=== PATIENT | female | born 1985 | race Caucasian/White ===

== ENCOUNTER 2018-07-06 06:27 | Day surgery (SDC) | payer OTHER ==
[2018-07-06] MEDS ORDERED: SUCCINYLCHOLINE CHLORIDE 100 MG/5 ML SYG IV (07:00)
[2018-07-06] MEDS ORDERED: LIDOCAINE 2% (SDV) 5 ML INJ (07:00)
[2018-07-06] MEDS ORDERED: CEFAZOLIN 2 GM/50 ML (PMX) 50 ML IVPB (10:00)
[2018-07-06] MEDS: SOD CHLORIDE 0.9% 1,000 ML IV (10:00)
[2018-07-06] MEDS ORDERED: DIPHENHYDRAMINE 50 MG INJ IV (12:30)
[2018-07-06] MEDS ORDERED: HYDROmorphONE 1 MG/5 ML IV SYRINGE IV ×3 (12:30)
[2018-07-06] MEDS ORDERED: MEPERIDINE 25 MG INJ IV (12:30)
[2018-07-06] MEDS ORDERED: ONDANSETRON 4 MG INJ IV (12:30)
[2018-07-06] MEDS ORDERED: METOCLOPRAMIDE 10 MG INJ IV (12:30)
[2018-07-06] MEDS ORDERED: FENTAnyl 50 MCG/ML VIAL IV ×2 (12:30)
[2018-07-06] MEDS ORDERED: FENTAnyl 50 MCG/ML VIAL (12:36)
[2018-07-06] MEDS ORDERED: CEFAZOLIN 1 GM INJ (12:49)
[2018-07-06] MEDS ORDERED: SUGAMMADEX SODIUM 200 MG/2 ML VIAL IV (12:49)
[2018-07-06] MEDS ORDERED: PROPOFOL 20 ML (12:49)
[2018-07-06] MEDS ORDERED: ROCURONIUM 50 MG INJ (12:49)
[2018-07-06] MEDS: BUPIVACAINE 0.25% (MPF) 30 ML INJ (13:02)
[2018-07-06] MEDS ORDERED: HYDROCODONE/APAP (5/325) TAB PO (13:30)
== END 2018-07-06 14:45 | disposition home or self-care (01) ==
LOC: SDS 06:27
DX: N63.10 Unspecified lump in the right breast, unspecified quadrant (principal); D24.1 Benign neoplasm of right breast; N60.11 Diffuse cystic mastopathy of right breast
CPT/HCPCS: 14001; 84703; 88307